=== PATIENT | male | born 2000 | race Hispanic/Latino ===

== ENCOUNTER 2021-12-03 01:00 | Emergency (ER) | payer OTHER ==
[2021-12-03] MEDS ORDERED: Lidocaine 1% PF 5 ML VIAL ONE (01:18)
== END 2021-12-03 02:01 | disposition home or self-care (01) ==
LOC: ERS 01:00
DX: L03.031 Cellulitis of right toe (principal); L60.0 Ingrowing nail
CPT/HCPCS: 10060; 11765